=== PATIENT | male | born 1975 | race African-American/Black ===

== ENCOUNTER 2024-09-30 10:46 | Inpatient (IN) | payer OTHER ==
[~2024-09-30] VITALS: Ht 185.4 cm; Wt 126.6 kg
--- NOTE | 2024-09-30 11:05 | ED.PDOC ---
HPI Comments 48 y/o M PHANI, with PMHX of CHF, HTN, and AFIB presents to the ED for CC chest pain. Per EMS, patient is coming for 's walk in clinic where he was being seen for chronic back pain; emergency medical was called due to STEMI being detected on EKG. Patient states, that he has been experiencing back pain, neck pain, and fatigue with intermittent left sided chest pain. Patient relays, that he is currently not experiencing active chest pain however did a couple days ago with associated arm numbness. Per EMS, patients blood pressure was 160/110 in route to ED. Patient denies headache, nausea, chills, weakness, or body-aches. No other symptoms or modifying factors at this time. Chief Complaint: Back Pain Time Seen by MD: 10:50 Reviewed Notes: Nurses Notes, Sensor Operator Notes, Medications, Allergies Allergies: Coded Allergies: Levofloxacin (Verified Allergy, Unknown, 09/30/24) Penicillins (Verified Allergy, Unknown, 09/30/24) Information Source: Patient, Emergency Med Personnel Mode of Arrival: EMS Severity: Moderate Timing: Minutes Duration: Since onset Prehospital treatment: 12 Lead EKG Location: Chest (L) Radiation: Back, Neck Onset: At Rest Cardiac Risk Factors: None PE Risk Factors: None History of: None Modifying Factors: Nothing Associated Signs and Symptoms: SOB, Back Pain Past Medical History PAST MEDICAL HISTORY: AFIB, CHF, HTN Surgical History (Other): pacemaker/difibulator Family History Family History: Family hx of heart jyothi Social History Smoker: Non-Smoker Alcohol: Denies ETOH Use Drugs: Denies Drug Use Lives In: Home Constitutional: reports: fatigue; denies: chills, diaphoresis, fever, malaise, sweats, weakness, others EENTM: denies: blurred vision, double vision, ear bleeding, ear discharge, ear drainage, ear pain, ear ringing, eye pain, eye redness, hearing loss, mouth pain, mouth swelling, nasal discharge, nose bleeding, nose congestion, nose pain, photophobia, tearing, throat pain, throat swelling, voice changes, others Respiratory: denies: cough, hemoptysis, orthopnea, SOB at rest, shortness of breath, SOB with excertion, stridor, wheezing, others Cardiovascular: denies: chest pain, dizzy spells, diaphoresis, Dyspnea on exertion, edema, irregular heart beat, left arm pain, lightheadedness, palpitations, PND, syncope, others Gastrointestinal: denies: abdomen distended, abdominal pain, blood streaked bowels, constipated, diarrhea, dysphagia, difficulty swallowing, hematemesis, melena, nausea, poor appetite, poor fluid intake, rectal bleeding, rectal pain, vomiting, others Genitourinary: denies: burning, dysuria, flank pain, frequency, hematuria, incontinence, penile discharge, penile sore, pain, testicle pain, testicle swelling, urgency, others Neurological: reports: numbness; denies: dizziness, fainting, headache, left sided numbness, left sided weakness, paresthesia, pre-existing deficit, right sided numbness, right sided weakness, seizure, speech problems, tingling, tremors, weakness, others Musculoskeletal: reports: back pain, neck pain; denies: gout, joint pain, joint swelling, muscle pain, muscle stiffness, others Integumetry: denies: bruises, change in color, change in hair/nails, dryness, laceration, lesions, lumps, rash, wounds, others Allergic/Immunocompromised: denies: Difficulty Healing, Frequent Infections, Hives, Itching, others Hematologic/Lymphatic: denies: anemia, blood clots, easy bleeding, easy bruising, swollen glands, others Endocrine: denies: excessive hunger, excessive sweating, excessive thirst, excessive urination, flushing, intolerance to cold, intolerance to heat, unexplained weight gain, unexplained weight loss, others Psychiatric: denies: anxiety, bipolar disorder, depression, hopeless, panic disorder, schizophrenia, sleepless, suicidal, others All Other Systems: Reviewed and Negative Physical Exam General Appearance: Moderate Distress HEENT: Normal ENT Inspection, Pharynx Normal, TMs Normal Neck: Full Range of Motion, Non-Tender, Normal, Normal Inspection Respiratory: Chest Non-Tender, Lungs Clear, No Accessory Muscle Use, No Respiratory Distress, Normal Breath Sounds, Other (The patient has an AICD in place on the left side) Cardiovascular: No Edema, No JVD, No Murmur, No Gallop, Normal Peripheral Pulses, Regular Rate/Rhythm Breast Exam: Deferred Gastrointestinal: No Organomegaly, Non Tender, No Pulsatile Mass, Normal Bowel Sounds, Soft Genitalia: Deferred Pelvic: Deferred Rectal: Deferred Extremities: No calf tenderness, Normal capillary refill, Normal inspection, Normal range of motion, Non-tender, No pedal edema Musculoskeletal : Apperance: Normal Neurologic: Alert, dietary clerk II-XII nml as Tested, No Motor Deficits, Normal Affect, Normal Mood, No Sensory Deficits Cerebellar Function: Normal Reflexes: Normal Skin: Dry, Normal Color, Warm Lymphatic: No Adenopathy EKG EKG : Pulse Rate (adult): 82 Cardiac Rhythm: Paced Block: None ST: Nonsp Was a procedure done? Was a procedure done?: No CP Differential Dx Differential Diagnosis: A-fib Differential Diagnosis: HTN Essential, HTN Accelerated Differential Diagnosis: Angina, Chest Wall Pain, Costochondritis X-Ray, Labs, Meds, VS Vital Signs Date Time Temp Pulse Resp B/P (MAP) Pulse Ox O2 Delivery O2 Flow Rate FiO2 09/30/24 14:47 82 09/30/24 14:34 82 18 135/73 (93) 100 09/30/24 14:33 79 18 135/73 09/30/24 13:28 81 18 94 Room Air 09/30/24 13:28 81 18 126/93 (104) 94 09/30/24 12:25 98.1 83 17 155/109 (124) 97 98.1 09/30/24 10:46 82 09/30/24 10:46 98.1 86 18 170/110 (130) 97 153/110 (124) Lab Test 09/30/24 13:42 09/30/24 12:21 09/30/24 11:57 09/30/24 10:34 Range/Units Troponin I High Sensitivity 128 *H 130 *H 127 *H </=54 ng/L Urine Color Light-yellow Yellow Urine Clarity Clear Clear Urine pH 6.5 5.0-9.0 Urine Specific [place] 1.020 1.001-1.035 Urine Protein Negative Negative Urine Ketones Negative Negative Urine Blood Negative Negative /uL Urine Nitrite Negative Negative Urine Bilirubin Negative Negative Urine Urobilinogen Normal Negative mg/dL Urine Leukocyte Esterase Negative Negative /uL Urine RBC 2 0 - 3 /hpf Urine Microscopic WBC 1 0-3 /HPF Urine Squamous Epithelial Cells None seen <5 /hpf Urine Bacteria None seen None Seen /hpf Urine Glucose Normal Normal mg/dL White Blood Count 6.2 4.4-10.8 10^3/uL Red Blood Count 5.23 4.5-5.90 10^6/uL Hemoglobin 14.6 13.5-17.5 g/dL Hematocrit 44.9 41.0-53.0 % Mean Corpuscular Volume 85.8 80.0-100.0 fL Mean Corpuscular Hemoglobin 28.0 28.0-32.0 pg Mean Corpuscular Hemoglobin Concent 32.6 32.0-36.0 g/dL Red Cell Distribution Width 12.7 11.8-14.3 % Platelet Count 263 140-450 10^3/uL Mean Platelet Volume 7.6 6.9-10.8 fL Neutrophils (%) (Auto) 50.8 37.0-80.0 % Lymphocytes (%) (Auto) 33.7 10.0-50.0 % Monocytes (%) (Auto) 11.7 0.0-12.0 % Eosinophils (%) (Auto) 2.6 0.0-7.0 % Basophils (%) (Auto) 1.2 0.0-2.0 % Neutrophils # (Auto) 3.1 1.6-8.6 10 ^3/uL Lymphocytes # (Auto) 2.1 0.4-5.4 10 ^3/uL Monocytes # (Auto) 0.7 0-1.3 10 ^3/uL Eosinophils # (Auto) 0.2 0-0.8 10 ^3/uL Basophils # (Auto) 0.1 0-0.2 10 ^3/uL Nucleated Red Blood Cells 0.1 % Sodium Level 138 136-145 mmol/L Potassium Level 3.8 3.5-5.1 mmol/L Chloride Level 102 98-107 mmol/L Carbon Dioxide Level 30 20-31 mmol/L Anion Gap 6 5-15 Blood Urea Nitrogen 14 9-23 mg/dL Creatinine 1.17 0.700-1.30 mg/dL Glomerular Filtration Rate Calc 76 >90 mL/min BUN/Creatinine Ratio 12.0 10.0-20.0 Serum Glucose 89 74-106 mg/dL Calcium Level 9.9 8.7-10.4 mg/dL B-Type Natriuretic Peptide 45.99 0-100 pg/mL Current Medications Medications (Trade) Dose Ordered Sig/Crystal Route Start Time Stop Time Status Last Admin Ondansetron HCl (Zofran) 4 mg ONCE ONCE IV 09/30/24 14:30 09/30/24 14:31 DC 09/30/24 14:33 Morphine Sulfate 4 mg ONCE ONCE IV 09/30/24 14:30 09/30/24 14:31 DC 09/30/24 14:33 CXR: FINDINGS: Lines and Tubes: Cardiac pacemaker projects over left chest wall. Lungs: No focal consolidation. Pleura: No effusion. No pneumothorax. Cardiomediastinal contours: Unremarkable Bones: No acute osseous abnormality. IMPRESSION: No acute cardiopulmonary disease. ATED BY: BRIDGET SHINE MD DICTATED DATE/TIME: 09/30/241127 SIGNED BY: BRIDGET SHINE MD SIGNED DATE/TIME: 09/30/241127 CC: The AICD pacemaker was interrogated. It seems that the patient goes in and out of atrial fibrillation. The device has a about a five year lifetime left. At this time it seems to be functioning appropriately IV Hep-Lock was established and the patient was given morphine 4 mg IV push for the pain The patient was given Zofran 4 mg IV push for the nausea The BNP is within normal limits The CBC and chemistry panel are within normal limits The patient was being admitted at this time The troponin level is elevated at 127 and 130 The patient was being admitted Images Reviewed?: Images reviewed and evaluated by me Time of 1ST Reevaluation: 11:20 Reevaluation 1ST: Unchanged Patient Education/Counseling: Diagnosis, Treatment, Prognosis Family Education/Counseling: No Family Present Additional Information - I reviewed the following notes from patient's past medical encounters: NONE - The following tests were ordered, and results were reviewed by me: BMP, CBC, B-TYPE NATRIURETIC, UA, TROPONIN X3, EKG X3, CXR - Additional information was gathered from interviewing the following independent Historian: EMS - I reviewed and agreed with the following test results read by other provider: CXR radiologist - I discussed treatments and results with medical personnel and: PATIENT Departure 1 Departure Time of Disposition: 15:26 Impression: Primary Impression: Acute chest pain Additional Impressions: Acute coronary syndrome Elevated troponin Disposition: ADMITTED INPATIENT Admit to: [facility] Condition: Fair Critical Care Note Critical Care Time?: Yes (45 min-critical care time only) Stability Stability form required: Yes Unstable for transfer: Telemetry monitoring (Telemetry monitoring required), ED Physician Assesment (Clinical assesment) Heart Score Heart Score: Heart Score Response (Comments) Value History N/A 0 EKG N/A 0 Age N/A 0 Risk Factors N/A 0 Troponin N/A 0 Total 0 I personally scribed for ERIC MEDRANO MD ([email or web address]) on 09/30/24 at 11:05. Electronically submitted by Mony Caavzos ([email or web address]). I personally scribed for ERIC MEDRANO MD ([email or web address]) on 09/30/24 at 11:47. Electronically submitted by Mony Cavazos ([email or web address]). ERIC MEDRANO MD Sep 30, 2024 11:05
[2024-09-30 11:15] LABS: Basophils # (auto) 0.1 10 ^3/uL (0-0.2); Basophils % (auto) 1.2 % (0.0-2.0); Eosinophils # (auto) 0.2 10 ^3/uL (0-0.8); Eosinophils % (auto) 2.6 % (0.0-7.0); Hematocrit 44.9 % (41.0-53.0); Hemoglobin 14.6 g/dL (13.5-17.5); Lymphocytes # (auto) 2.1 10 ^3/uL (0.4-5.4); Lymphocytes % (auto) 33.7 % (10.0-50.0); Mean Corpuscular Hgb Conc. 32.6 g/dL (32.0-36.0); Mean Corpuscular Volume 85.8 fL (80.0-100.0); Monocytes # (auto) 0.7 10 ^3/uL (0-1.3); Monocytes % (auto) 11.7 % (0.0-12.0); Neutrophils # (auto) 3.1 10 ^3/uL (1.6-8.6); Neutrophils % (auto) 50.8 % (37.0-80.0); Nucleated Red Blood Cells % 0.1 %; Platelet Count (auto) 263 10^3/uL (140-450); Red Blood Cells 5.23 10^6/uL (4.5-5.90); Red Cell Distribution Width 12.7 % (11.8-14.3); White Blood Cell 6.2 10^3/uL (4.4-10.8)
[2024-09-30 11:28] LABS: Chloride 102 mmol/L (98-107); Potassium 3.8 mmol/L (3.5-5.1); Sodium 138 mmol/L (136-145)
[2024-09-30 11:29] LABS: Anion Gap 6 (5-15); Calcium 9.9 mg/dL (8.7-10.4); Carbon Dioxide 30 mmol/L (20-31)
--- NOTE | 2024-09-30 11:29 | DVH ---
EXAM: XY CHEST PORTABLE Indication: pain Technique: Single frontal view of the chest was obtained Comparison: None FINDINGS: Lines and Tubes: Cardiac pacemaker projects over left chest wall. Lungs: No focal consolidation. Pleura: No effusion. No pneumothorax. Cardiomediastinal contours: Unremarkable Bones: No acute osseous abnormality. IMPRESSION: No acute cardiopulmonary disease.
[2024-09-30 11:34] LABS: Blood Urea Nitrogen 14 mg/dL (9-23); Glucose 89 mg/dL (74-106)
[2024-09-30 13:46] LABS: Urine Bacteria None Seen /hpf (None Seen)
[2024-09-30 14:10] LABS: Urine Blood Negative /uL (Negative); Urine Clarity Clear (Clear); Urine Color Light-Yellow (Yellow); Urine Protein, UAD Negative (Negative); Urine Squamous Epithelial Cell None Seen /hpf (<5); Urine Urobilinogen Normal (Negative); Urine WBC 1 /HPF (0-3); Urine pH 6.5 (5.0-9.0)
--- NOTE | 2024-09-30 14:30 | ECG ---
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
[2024-09-30] MEDS: MORPHINE SULFATE 4 MG/ML SYR/VIAL IV ONE ×2 (14:33→21:45)
[2024-09-30] MEDS: ONDANSETRON HCL 4 MG/2 ML VIAL IV ONE ×2 (14:33→21:45)
[2024-09-30] MEDS ORDERED: SOTA80TA PO (16:04)
[2024-09-30] MEDS ORDERED: SOTA120T25 PO (20:00)
[2024-09-30] MEDS ORDERED: DILT60TA PO (20:01)
[2024-09-30] MEDS ORDERED: RIVA20TA PO (20:02)
[2024-09-30] MEDS ORDERED: FURO1TAB31 PO (20:03)
[2024-09-30] MEDS ORDERED: GABA-1308 PO (20:04)
[2024-09-30] MEDS ORDERED: MORPHINE SULFATE INJ 2 MG/ml SYRG IV PRN (21:45)
[2024-09-30] MEDS ORDERED: NITROGLYCERIN 0.4 MG SL TAB SL PRN (21:45)
[2024-09-30] MEDS: GABAPENTIN 100 MG CAP PO SCH (22:18)
[2024-09-30] MEDS: SOTALOL HCL 80 MG TAB PO SCH (22:21)
[2024-09-30 23:32] VITALS: BP 129/79; PULSE 60; PULSE 61; PULSE 80; RESP 20; TEMP 98.6; O2SAT 95
[2024-10-01] VITALS (10 sets, daily range): BP systolic 92–134; BP diastolic 54–95; PULSE 60–81; RESP 18–20; TEMP 97.5–98.9; O2SAT 94–100
[2024-10-01] MEDS: ASPirin 81 mg TAB PO SCH (00:26)
--- NOTE | 2024-10-01 01:40 | DVHHPRES ---
History of Present Illness Resident Creating Document: ANTHONY LOPEZ Reason for Visit: STEMI? History of Present Illness A 48-year-old male with a past medical history of congestive heart failure (CHF), hypertension (HTN), and atrial fibrillation (AFib) (pacemaker-dependent), who presents to the emergency department with chest pain and back pain. Per EMS, the patient was initially seen at Dr[facility] Sauer walk-in clinic for chronic back pain when emergency services were called due to a STEMI being detected on a 12-lead ECG. En route, his blood pressure was 160/110 mmHg. The patient describes his symptoms as back pain and fatigue, with intermittent left-sided chest pain over the past few days. He denies any current active chest pain but reports that he experienced left arm numbness and chest pain a couple of days ago. Functional class NYHA IV, orthopnea sleeps with 4 pillows paroxysmal nocturnal dyspnea. He denies headache, nausea, chills, weakness, or body aches. Past Medical History: Atrial fibrillation (pacemaker/ICD dependent) Congestive heart failure (CHF), NYHA IV Hypertension PRKAG2 cardiomyopathy Home meds: Jardiance 10 mg sotalol 120 mg b.i.d. Xarelto 20 mg gabapentin 100 mg furosemide 40 mg only if edema diltiazem 120 mg Surgical History: Pacemaker/ICD placement Social History: Non-smoker Denies alcohol or illicit drug use Lives at home Review of Systems Constitutional: No: Fever, Chills, Sweats, Weakness, Malaise, Other Eyes: No: Pain, Vision change, Conjunctivae inflammation, Eyelid inflammation, Other, Redness ENT: No: Ear pain, Ear discharge, Nose pain, Nose discharge, Nose congestion, Mouth pain, Mouth swelling, Throat pain, Throat swelling, Other Respiratory: No: Cough, Dry, Shortness of breath, SOB with excertion, Wheezing, Hemoptysis, Pleuritic Pain, Sputum, Wheezing, Other Cardiovascular: Chest Pain, Orthopnea, Paroxysmal Noc. Dyspnea Gastrointestinal: No: Nausea, Vomiting, Abdominal Pain, Diarrhea, Constipation, Melena, Hematochezia, Other Genitourinary: No Dysuria, No Frequency, No Incontinence, No Hematuria, No Retention, No Other Musculoskeletal: No: other, neck pain, shoulder pain, arm pain, back pain, hand pain, leg pain, foot pain Skin: No: Rash, Lesions, Jaundice, Bruising, Other Neurological: No: Weakness, Numbness, Incoordination, Change in speech, Confusion, Seizures, Other Allergies: Coded Allergies: Levofloxacin (Verified Allergy, Unknown, 09/30/24) Penicillins (Verified Allergy, Unknown, 09/30/24) Medications Current Medications Medications Dose Ordered Sig/Crystal Route Start Time Stop Time Status Last Admin Dose Admin Nitroglycerin 0.4 mg Q5MINP PRN SL 09/30/24 21:45 Morphine Sulfate 2 mg Q30M PRN IV 09/30/24 21:45 Empaglifozin 10 mg DAILY PO 10/01/24 10:00 Sotalol HCl 120 mg BID PO 09/30/24 22:00 09/30/24 22:21 120 MG Rivaroxaban 20 mg QPM PO 10/01/24 18:00 Furosemide 40 mg DAILY PO 10/01/24 10:00 Diltiazem HCl 120 mg DAILY PO 10/01/24 10:00 Gabapentin 100 mg DAILY PO 09/30/24 10:00 09/30/24 22:18 100 MG Aspirin 81 mg DAILY PO 10/01/24 00:30 10/01/24 00:26 81 MG Exam Vital Signs Vital Signs Date Time Temp Pulse Resp B/P (MAP) Pulse Ox O2 Delivery O2 Flow Rate FiO2 09/30/24 23:32 60 20 95 Room Air* 0 21 09/30/24 23:32 98.6 129/79 (96) 98.6 General Appearance: Alert, Oriented X3, Cooperative, No acute distress HEENT: Atraumatic, PERRLA, EOMI, Mucous membr. moist/pink Respiratory: Clear to auscultation, Normal air movement Cardiovascular: Regular rate, Normal S1, Normal S2 Abdominal: Normal bowel sounds, Soft, No tenderness, No hepatospenomegaly Extremities: No clubbing, No cyanosis, No edema, Normal pulses Skin: No rashes, No breakdown, No significant lesion Neuro: Normal gait, Normal speech, Strength at 5/5 X4 ext, Normal tone, Sensation intact Psych/Mental Status: Mental status NL, Mood NL Labs/Xrays Labs Test 09/30/24 13:42 09/30/24 12:21 09/30/24 10:34 Range/Units Troponin I High Sensitivity 128 *H </=54 ng/L Urine Color Light-yellow Yellow Urine Clarity Clear Clear Urine pH 6.5 5.0-9.0 Urine Specific [place] 1.020 1.001-1.035 Urine Protein Negative Negative Urine Ketones Negative Negative Urine Blood Negative Negative /uL Urine Nitrite Negative Negative Urine Bilirubin Negative Negative Urine Urobilinogen Normal Negative mg/dL Urine Leukocyte Esterase Negative Negative /uL Urine RBC 2 0 - 3 /hpf Urine Microscopic WBC 1 0-3 /HPF Urine Squamous Epithelial Cells None seen <5 /hpf Urine Bacteria None seen None Seen /hpf Urine Glucose Normal Normal mg/dL White Blood Count 6.2 4.4-10.8 10^3/uL Red Blood Count 5.23 4.5-5.90 10^6/uL Hemoglobin 14.6 13.5-17.5 g/dL Hematocrit 44.9 41.0-53.0 % Mean Corpuscular Volume 85.8 80.0-100.0 fL Mean Corpuscular Hemoglobin 28.0 28.0-32.0 pg Mean Corpuscular Hemoglobin Concent 32.6 32.0-36.0 g/dL Red Cell Distribution Width 12.7 11.8-14.3 % Platelet Count 263 140-450 10^3/uL Mean Platelet Volume 7.6 6.9-10.8 fL Neutrophils (%) (Auto) 50.8 37.0-80.0 % Lymphocytes (%) (Auto) 33.7 10.0-50.0 % Monocytes (%) (Auto) 11.7 0.0-12.0 % Eosinophils (%) (Auto) 2.6 0.0-7.0 % Basophils (%) (Auto) 1.2 0.0-2.0 % Neutrophils # (Auto) 3.1 1.6-8.6 10 ^3/uL Lymphocytes # (Auto) 2.1 0.4-5.4 10 ^3/uL Monocytes # (Auto) 0.7 0-1.3 10 ^3/uL Eosinophils # (Auto) 0.2 0-0.8 10 ^3/uL Basophils # (Auto) 0.1 0-0.2 10 ^3/uL Nucleated Red Blood Cells 0.1 % Sodium Level 138 136-145 mmol/L Potassium Level 3.8 3.5-5.1 mmol/L Chloride Level 102 98-107 mmol/L Carbon Dioxide Level 30 20-31 mmol/L Anion Gap 6 5-15 Blood Urea Nitrogen 14 9-23 mg/dL Creatinine 1.17 0.700-1.30 mg/dL Glomerular Filtration Rate Calc 76 >90 mL/min BUN/Creatinine Ratio 12.0 10.0-20.0 Serum Glucose 89 74-106 mg/dL Calcium Level 9.9 8.7-10.4 mg/dL B-Type Natriuretic Peptide 45.99 0-100 pg/mL Assessment/Plan Assessment/Plan Diagnostics & Laboratory Findings: Electrocardiogram (ECG): Pacemaker rhythm No ischemic ST-T changes Evidence of biventricular pacing Echocardiogram [place] 2024: Ejection Fraction (EF): 75% Moderate left ventricular hypertrophy Grade II diastolic dysfunction Coronary Angioct SEP 01 2024: Normal coronary arteries (no obstructive CAD) Interrogation: The AICD pacemaker was interrogated. It seems that the patient goes in and out of atrial fibrillation. Laboratory Results: Troponin I (High Sensitivity): 127/30/128 BNP: 45.99 Electrolytes: Within normal limits Assessment & Plan: #ACS ruled out #Chest Pain with Mild Troponin Elevation (STEMI Alert in Clinic, but Normal Angio) #NSTEMI type 2: Likely demand ischemia vs. PRKAG2-related conduction abnormalities. #PRKAG2 Cardiomyopathy with Pacemaker Dependency #Hypertensive heart disease with diastolic disfunction #Hypertensive urgency resolved #Paroxysmal Atrial fibrillation Admit Telemetry Aspirin 81 mg Xarelto 20 mg Continue Diltiazem, Furosemide, Sotalol. Cardiology consult Case discussed with Dr Acosta Time spent on care 23 min Plan discussed with: Patient, Other (rn) My Orders Orders - ANTHONY LOPEZ RESIDENT Procedure Category Date Status Time Admit ADMIT 09/30/24 Transmitted 21:44 Nitroglycerin PHA 09/30/24 In Process Sublingual (Ntrostat 21:45 Morphine Sulfate PHA 09/30/24 In Process Injection 21:45 Oxygen By Nasal RT 09/30/24 Transmitted Cannula 21:44 Stat Ekg For Chest JOSH 09/30/24 In Process Pain 21:44 Notify Of Changes JSOH 09/30/24 In Process From Base 21:44 Fan Installer For JOSH 09/30/24 In Process 24 Hours 21:44 Emergency Dysrhythmia JOSH 09/30/24 In Process Protocol 21:44 Rhythm Strips Once JOSH 09/30/24 In Process Every Shift 21:44 Cardiac DIET 2/14/25 Transmitted Diet-2gna,Lofat,Lochol Breakfast Empagliflozin PHA 10/01/24 In Process (Jardiance) 10:00 Sotalol Hcl ([place]) PHA 09/30/24 In Process 22:00 Rivaroxaban Tablet PHA 10/01/24 In Process (Xarelto Tablet) 18:00 Furosemide Tablet PHA 10/01/24 In Process (Lasix Tablet) 10:00 Echo 2d Mode Cardiac US 09/30/24 Logged DOP 21:44 * Cardiology Consult CONS 09/30/24 Transmitted 21:44 Diltiazem Er Capsule PHA 10/01/24 In Process (Cardizem Er Capsul 10:00 Gabapentin Capsule PHA 09/30/24 In Process (Neurontin Capsule) 10:00 Aspirin Tablet PHA 10/01/24 In Process 00:30 Date of Service: Sep 30, 2024 Billing Provider: GEOFFREY ACOSTA MD Common Visit Codes: 47440-[id number] INP/OBS CARE (HIGH) ANTHONY LOPEZ RESIDENT Oct 01, 2024 01:40 GEOFFREY ACOSTA MD Oct 01, 2024 23:27
[2024-10-01] MEDS: EMPAGLIFLOZIN 10 MG TAB PO SCH (09:35)
[2024-10-01] MEDS: dilTIAZem 120MG ER CAP PO SCH (09:36)
[2024-10-01] MEDS: FUROSEMIDE 40 MG TAB PO SCH (09:37)
[2024-10-01] MEDS ORDERED: GABAPENTIN 100 MG CAP PO ONE (10:00)
--- NOTE | 2024-10-01 10:31 | DVHCONRES ---
Date Seen: Oct 01, 2024 Resident Creating Document: SIENNA SINGER RESIDENT Referring Physician Dr. Walls, resident Reason for Consultation PRKAG2 sx, chest pain, elevated trops History of Present Illness This is a 48-year-old male who comes into the ED with chief complain of chest pain and back pain. He has a past medical history relevant for CHF, hypertension, atrial fibrillation, pacemaker, PRKAG2 cardiomyopathy, sleep apnea. Social history: Nonsmoker, denies alcohol use or illicit drug use. Home meds: Jardiance, sotalol 120 mg b.i.d., Xarelto 20 mg, gabapentin, Lasix 40 mg p.o. q.d., diltiazem 120 mg Patient stated that for the last two weeks he has been experiencing worsening shortness of breath, fatigue, back pain, however on the day that he was admitted to the hospital he went to a walk-in clinic for complain of back pain, an EKG was performed noting possible STEMI, he was sent to the ED. blood pressure was also elevated 160/110. Patient has also been complaining of intermittent left- sided chest tightness, mild, relief with rest, and narcotics. Patient states he ran out of his medications a couple of weeks ago. On arrival, patient had done an EKG, no STEMI was appreciated, troponins were raised, BNP was within normal limits. Blood pressure was elevated at 170 over 110. All other blood work was unremarkable. Chest x-ray was unremarkable. EKG showed: Atrial sensed ventricular paced complexes, regular, QTC prolonged at 558. On my examination, patient states feeling better than on admission, only she is having mild shortness of breath, fatigue, back pain, mild chest tightness. He is currently on room air, vital signs are unremarkable. Patient stated she has a left heart catheterization in 2007 which was unremarkable. Mental Measurements Teacher: [facility]. Edwards from [facility] PCP: Dr. Sahu from [facility] Family History: Diabetes mellitus G8 MOTHER FH: mental illness Allergies: Coded Allergies: Levofloxacin (Verified Allergy, Unknown, 09/30/24) Penicillins (Verified Allergy, Unknown, 09/30/24) Home Meds Reported Medications Gabapentin (Gabapentin) 100 Mg Cap, 100 MG PO TID 09/30/24 Furosemide (Lasix) 40 Mg Tab, 40 MG PO DAILY, TAB 09/30/24 Rivaroxaban (XARELTO) 20 Mg Tab, 1 TAB PO DAILY, #30 TAB 11 Refills 09/30/24 Diltiazem Hcl (Diltiazem Hcl) 60 Mg Tab, 120 MG PO Q8HR for 30 Days, MG 09/30/24 Sotalol Hcl (Sotalol Hcl) 80 Mg Tab, 120 MG PO BID, TAB 09/30/24 Current Medications Current Medications Medications (Trade) Dose Ordered Sig/Crytsal Route PRN Reason Start Time Stop Time Status Last Admin Nitroglycerin (Ntrostat Sublingual) 0.4 mg Q5MINP PRN SL FOR CHEST PAIN 09/30/24 21:45 10/01/24 06:40 DC Morphine Sulfate 2 mg Q30M PRN IV FOR CHEST PAIN 09/30/24 21:45 Empaglifozin (Jardiance) 10 mg DAILY PO 10/01/24 10:00 10/01/24 09:35 Sotalol HCl (Betapace) 120 mg BID PO 09/30/24 22:00 10/01/24 09:36 Rivaroxaban (Xarelto Tablet) 20 mg QPM PO 10/01/24 18:00 Furosemide (Lasix Tablet) 40 mg DAILY PO 10/01/24 10:00 10/01/24 09:37 Diltiazem HCl (Cardizem ER Capsule) 120 mg DAILY PO 10/01/24 10:00 Aspirin 81 mg DAILY PO 10/01/24 00:30 10/01/24 09:35 Review of Systems Constitutional: Fatigue Eyes: Patient denies any visual symptoms. Ears, Nose, and Throat: No difficulties with hearing. No symptoms of rhinitis or sore throat. Cardiovascular: Chest tightness Respiratory: Shortness of breath GI: No nausea, vomiting, diarrhea, constipation, abdominal pain, hematochezia or melena. : No urinary hesitancy or dribbling. No nocturia or urinary frequency. No abnormal urethral discharge. Musculoskeletal: No myalgias, arthralgias or edema. Neurologic: No chronic headaches, no seizures. Patient denies numbness, tingling or weakness. Psychiatric: Patient denies problems with mood disturbance. No problems with anxiety. Endocrine: No excessive urination or excessive thirst. Dermatologic: Patient denies any rashes or skin changes. Vital Signs Vital Signs Date Time Temp Pulse Resp B/P (MAP) Pulse Ox O2 Delivery O2 Flow Rate FiO2 10/01/24 09:37 123/84 10/01/24 09:36 77 10/01/24 08:34 97.5 20 97 97.5 09/30/24 23:32 Room Air* 0 21 Physical Exam General: Awake, alert, comfortable appearing, in no acute distress. HEENT: Head is normocephalic and atraumatic. Pupils are equal, round, and reactive to light. Extraocular muscles are intact. No nasal discharge. No facial trauma. Intraoral exam shows moist mucous membranes with no tonsillar enlargement or exudate. Neck: Supple with no cervical lymphadenopathy No meningismus. No goiter. Heart: Regular rate without murmur, rub, or gallop. Lungs: Scattered crackles bilaterally Abdomen: No external sign of injury. Bowel sounds are present. Abdomen is soft, nontender. No rebound, no guarding, no rigidity. There are no palpable masses. There is no flank pain on exam. Extremities: Strong peripheral pulses. There is no clubbing, no cyanosis, and no edema. Skin: No rash. Neurologic: Cranial nerves II-XII intact without motor, sensory, or cerebellar deficit, no asterixis. Labs/Diagnostic Data Labs Test 10/01/24 09:30 09/30/24 12:21 09/30/24 10:34 Range/Units Urine Color Light-yellow Yellow Urine Clarity Clear Clear Urine pH 6.5 5.0-9.0 Urine Specific [place] 1.020 1.001-1.035 Urine Protein Negative Negative Urine Ketones Negative Negative Urine Blood Negative Negative /uL Urine Nitrite Negative Negative Urine Bilirubin Negative Negative Urine Urobilinogen Normal Negative mg/dL Urine Leukocyte Esterase Negative Negative /uL Urine RBC 2 0 - 3 /hpf Urine Microscopic WBC 1 0-3 /HPF Urine Squamous Epithelial Cells None seen <5 /hpf Urine Bacteria None seen None Seen /hpf Urine Glucose Normal Normal mg/dL White Blood Count 6.2 4.4-10.8 10^3/uL Red Blood Count 5.23 4.5-5.90 10^6/uL Hemoglobin 14.6 13.5-17.5 g/dL Hematocrit 44.9 41.0-53.0 % Mean Corpuscular Volume 85.8 80.0-100.0 fL Mean Corpuscular Hemoglobin 28.0 28.0-32.0 pg Mean Corpuscular Hemoglobin Concent 32.6 32.0-36.0 g/dL Red Cell Distribution Width 12.7 11.8-14.3 % Platelet Count 263 140-450 10^3/uL Mean Platelet Volume 7.6 6.9-10.8 fL Neutrophils (%) (Auto) 50.8 37.0-80.0 % Lymphocytes (%) (Auto) 33.7 10.0-50.0 % Monocytes (%) (Auto) 11.7 0.0-12.0 % Eosinophils (%) (Auto) 2.6 0.0-7.0 % Basophils (%) (Auto) 1.2 0.0-2.0 % Neutrophils # (Auto) 3.1 1.6-8.6 10 ^3/uL Lymphocytes # (Auto) 2.1 0.4-5.4 10 ^3/uL Monocytes # (Auto) 0.7 0-1.3 10 ^3/uL Eosinophils # (Auto) 0.2 0-0.8 10 ^3/uL Basophils # (Auto) 0.1 0-0.2 10 ^3/uL Nucleated Red Blood Cells 0.1 % Sodium Level 138 136-145 mmol/L Potassium Level 3.8 3.5-5.1 mmol/L Chloride Level 102 98-107 mmol/L Carbon Dioxide Level 30 20-31 mmol/L Anion Gap 6 5-15 Blood Urea Nitrogen 14 9-23 mg/dL Creatinine 1.17 0.700-1.30 mg/dL Glomerular Filtration Rate Calc 76 >90 mL/min BUN/Creatinine Ratio 12.0 10.0-20.0 Serum Glucose 89 74-106 mg/dL Calcium Level 9.9 8.7-10.4 mg/dL B-Type Natriuretic Peptide 45.99 0-100 pg/mL Assessment Atypical chest pain, ruled out ACS Hypertensive urgency NSTEMI likely type 2 due to above Paroxysmal Atrial fibrillation, status AICD [employer] PRKAG2 cardiomyopathy Chronic systolic/diastolic CHF Plan/Recommendation Patient presented with atypical chest pain, troponins were elevated likely related to hypertensive urgency, currently blood pressure is stable, troponins are trending down, EKG shows a paced rhythm. Continue sotalol 120 mg p.o. b.i.d. Continue Xarelto 20 mg p.o. q.d. Continue aspirin 81 mg p.o. q.d. Start Lipitor 40 mg p.o. q.d. ASCVD score of 14% Echocardiogram reveals an ejection fraction of 55%, severe LVH Patient has undergone significant cardiac workup recently, we will not be performed in any catheterization, we recommended patient to follow up with his well head pumper in [facility]. Case was discussed with Dr. Crook seen with CV team and agree with plan formulated with resident pt has unsual cardiomyoathy he has very good fu with his cards in [facility] pt had recent coronary cta heart, i dont have report, pt has on phone but its not clear, he tells me its normal however device is MDT, he gets it checked q3 months trop is 2/2 to chf and HTN on admit cont home meds fu with his cards cvcleared for dc home echo showed severe LVH on his previous echo Plan discussed with: Patient SIENNA SINGER RESIDENT Oct 01, 2024 10:31 SHAHBAZ CROOK MD Oct 01, 2024 17:11
[2024-10-01 10:33] LABS: CRP High Sensitivity 0.28 mg/dL (<1.0)
--- NOTE | 2024-10-01 12:37 | DVHSR ---
APPROVED REPORT EXAM: Two-dimensional and M-mode echocardiogram with Doppler and color Doppler. Blood Pressure: 92/54 mmHg INDICATION Chest Pain RISK FACTORS Height: 6'1, Weight: 255 DIMENSIONS LVDd5.5 (3.8-5.7cm)LA (2D)3.3 (1.9-4.0cm)Aortic Root4.2 (2.0-3.7cm) LVDs3.5 (2.5-4.0cm)LA (MM) (1.9-4.0cm)Aortic Cusp Exc1.9 (1.5-2.0cm) EF (%) 65.0 (55-70%)Rt. Atrium (1.9-4.0cm)Asc. Aorta3.7 cm IVSd1.4 (0.7-1.1cm)RV (D) (1.8-2.4cm) PWd1.4 (0.7-1.1cm) Mitral Valve MitralMitral Stenosis E wave0.80m/sMV Mean GR.mmHg A wave0.69m/sMV Peak GR.113mmHg E/A ratio1.22D MVAcm2 DECEL [id number] 1/2 Timems Aortic Valve Aortic ValveAortic Stenosis V11.03m/Ama Mean GR.4mmHg V21.35m/Ama Peak GR.7mmHg LVOT Diameter2.1 (1.8-2.4cm)Doppler AVA2.64cm2 Pulmonic Valve V21.07m/s Other Information Quality : Technically LimitedRhythm : Technically limited study due to pt stated he is sensitive to touch Conclusion lvef 55% by visual estimate severe LVH , severe concentric, small LV cavity atria not swell seen no severe valve abnormalities noted
--- NOTE | 2024-10-01 13:44 | DVHPNRES ---
Progress Note Date Seen: Oct 01, 2024 Resident Creating Document: JUNIOR JJ RESIDENT Medical Necessity Reason Pt with a Central, PICC or Fol: No Subjective Review of Systems Patient is a 48-year-old male with past medical history of PRKAG2 cardiomyopathy, atrial fibrillation, CHF, s/p ICD placement, chronic back pain, asthma, sleep apnea, hypertension who came to the emergency department due to chest, back and neck pain. According to the patient, he ran out of his pain medications including prednisone, lidocaine patch and gabapentin and he subsequently went to his PCP, Dr. Cristiane sidhu on [facility], where he was noted to have EKG changes likely ST elevations after which he was sent to the ED via ambulance. Patient notes that he had cardiac workup including coronary CT on 09/01/2023 which showed nonobstructive coronary artery disease, echo from the same time showed EF 75%, moderate left ventricular hypertrophy and grade 2 diastolic dysfunction. Serial troponins were noted to be 130, 128, 112. Patient notes using 4-5 pillows at night, however, most of them are used around him rather under his head likely for comfort purposes. Patient is able to lie flat without any appreciable or obvious difficulty breathing. Past surgical history: Left ankle surgery, jaw surgery, s/p ICD placement Home medications: Sotalol, Xarelto, Jardiance, prednisolone, gabapentin, furosemide, diltiazem Social & Personal history: Patient lives with family. Denies smoking. Drinks alcohol occasionally. Denies using any drugs. Allergies: Breaks into hives with penicillin, chest pain with Levaquin Patient seen and examined at bedside. Patient is alert and oriented to time, place person and responding to all questions. General: Fatigue Eyes: No Pain, No Vision change, No Conjunctivae inflammation, No Eyelid inflammation, No Other, No Redness ENT: No Ear pain, No Ear discharge, No Nose pain, No Nose discharge, No Nose congestion, No Mouth pain, No Mouth swelling, No Throat pain, No Throat swelling, No Other Cardiovascular: No Chest Pain, Palpitations, No Orthopnea, Dyspnea, No Edema, No Lt Headedness, No Other Respiratory: No Cough, No Dry, Shortness of breath, No SOB with exertion, No Wheezing, No Hemoptysis, No Pleuritic Pain, No Sputum, No Other Gastrointestinal: No Nausea, No Vomiting, No Abdominal Pain, No Diarrhea, No Constipation, No Melena, No Hematochezia, No Other Genitourinary: No Dysuria, Frequency, No Incontinence, No Hematuria, No Retention, No Other Musculoskeletal: No other, No neck pain, No shoulder pain, No arm pain, No back pain, No hand pain, No leg pain, No foot pain Skin: No Rash, No Lesions, No Jaundice, No Bruising, No Other Objective vital signs Vital Sign Date Time Temp Pulse Resp B/P (MAP) Pulse Ox O2 Delivery O2 Flow Rate FiO2 10/01/24 13:00 98.0 80 20 125/82 (96) 95 98.0 09/30/24 23:32 Room Air* 0 21 Total Intake and Output 09/30/24 09/30/24 10/01/24 15:00 23:00 07:00 Intake Total 0 ml Output Total 0 ml Balance 0 ml medications Current Medications Medications Dose Ordered Sig/Crystal Route Start Time Stop Time Status Last Admin Dose Admin Morphine Sulfate 2 mg Q30M PRN IV 09/30/24 21:45 Empaglifozin 10 mg DAILY PO 10/01/24 10:00 10/01/24 09:35 10 MG Sotalol HCl 120 mg BID PO 09/30/24 22:00 10/01/24 09:36 120 MG Rivaroxaban 20 mg QPM PO 10/01/24 18:00 Furosemide 40 mg DAILY PO 10/01/24 10:00 10/01/24 09:37 40 MG Diltiazem HCl 120 mg DAILY PO 10/01/24 10:00 Gabapentin 100 mg DAILY PO 09/30/24 10:00 10/01/24 09:37 100 MG Aspirin 81 mg DAILY PO 10/01/24 00:30 10/01/24 09:35 81 MG Atorvastatin Calcium 40 mg HS PO 10/01/24 22:00 Lidocaine 1 patch DAILY TOP 10/02/24 10:00 UNV Examination General Appearance: Cooperative. Well developed. Well nourished. NAD Head Exam: Normal inspection Neck Exam: Normal inspection. Non-tender. Normal alignment Pulmonary/Respiratory: Chest non-tender. Clear bilateral breath sounds, no crackles, no wheezing. Cardiovascular/Chest: Regular rate and rhythm. No murmurs. No JVD. Peripheral Pulses: 2+ Radial (R). 2+ Radial (L). 2+ Pedal (R). 2+ Pedal (L) Abdominal Exam: Normal bowel sounds. Soft. Mild mid abdominal tenderness to palpation, no visible veins, Nontender. No hepatospenomegaly. No masses Ankle Exam: Negative ankle edema Lower extremities: Negative lower extremity edema Neuro/Mental Status: A&O x4. Coherent. Thoughts/Psych: Normal thought pattern. Appropriate mood and affect. Good judgement and insight Skin Exam: Normal inspection. Normal color. Warm. Dry laboratory and microbiology Laboratory Tests 09/30/24 10:34 Test 09/30/24 10:34 Range/Units Serum Glucose 89 74-106 mg/dL Labs and/or images reviewed: Labs reviewed by me, Image(s) reviewed by me Problem List/Assessment/Plan Problem List/Assessment/Plan Chronic back and neck pain - gabapentin 100 mg p.o. daily - lidocaine 5% patch Chest pain with mild troponin elevation ACS ruled out NSTEMI likely type 2 PRKAg 2 cardiomyopathy with pacemaker/ICD dependency Hypertensive heart disease with diastolic dysfunction Paroxysmal atrial fibrillation Hypercoagulable state secondary to above - CXR: No acute cardiopulmonary disease - diltiazem 120 mg p.o. daily - Jardiance 10 mg p.o. daily - furosemide-40 mg p.o. daily - Sotalol 120 mg p.o. b.i.d. - rivaroxaban 20 mg p.o. q.p.m. Hypertension Presented with hypertensive urgency, now improving - aspirin 81 mg - atorvastatin 40 mg asthma sleep apnea - ipratropium and levalbuterol med nebs - BiPAP/CPAP at night for sleep apnea with home settings PUD prophylaxis: protonix 40mg DVT prophylaxis: Levonox 40mg Goals of care: Full code, discussed for >16 minutes on 02/24/24 Plan discussed with patient Plan discussed with Dr. Esparza Plan discussed with: Patient, Other (RN) My Orders My Orders Orders - JUNIOR JJ RESIDENT Procedure Category Date Status Time Pt Request For Service PT 10/01/24 Logged 13:03 Lidocaine 5% Topical PHA 10/02/24 Logged Patch (Lidoderm 5% 10:00 Lorazepam 2mg/Ml Inj PHA 10/01/24 Logged (Ativan Inj) 13:15 Warm Compresses ORDERS 10/01/24 Transmitted 13:05 Date of Service: Oct 01, 2024 Billing Provider: VALENCIA ESPARZA MD Common Visit Codes: [id number] INP/OBS CARE(HIGH) JUNIOR JJ Oct 01, 2024 13:44 VALENCIA ESPARZA MD Oct 05, 2024 16:06
[2024-10-01] MEDS: LORazepam 2MG/ML-1ML VIAL IV ONE (15:00)
[2024-10-01] MEDS: LIDOCAINE 5% TOPICAL PATCH TOP SCH (16:24)
[2024-10-01] MEDS: RIVAROXABAN 20 MG TAB PO SCH (18:27)
[2024-10-01] MEDS ORDERED: IPRATROPIUM BROM 0.5 MG/2.5ML INH SOL NEB PRN (19:15)
[2024-10-01] MEDS ORDERED: LEVALBUTEROL HCL 1.25 MG/3 ML NEB NEB PRN (19:15)
[2024-10-01] MEDS: POLYETHYLENE GLYCOL 17 GM PWDR PO PRN (19:35)
[2024-10-01] MEDS: diphenhdrAMINE HCL 12.5 MG/5 ML UD PO ONE (20:19)
[2024-10-01 21:03] LABS: Opiate Scree,Urine Neg (NEGATIVE)
[2024-10-01 21:10] LABS: Amphetamine Screen, Urine Neg (NEGATIVE); Barbiturate Scree,Urine Neg (NEGATIVE); Benzodiazephine Screen, Urine Neg (NEGATIVE); Cannabinoid Screen, Urine Neg (NEGATIVE); Cocaine Screen, Urine Neg (NEGATIVE); Phencyclidine Screen, Urine Neg (NEGATIVE)
[2024-10-01] MEDS: ATORVASTATIN 20 MG TAB PO SCH (21:29)
[2024-10-02 01:00] VITALS: BP 106/73; PULSE 60; RESP 20; TEMP 98.1; O2SAT 98
[2024-10-02 02:12] VITALS: PULSE 60; O2SAT 98
[2024-10-02 05:00] VITALS: BP 116/67; PULSE 60; RESP 18; TEMP 97.6; O2SAT 98
[2024-10-02 06:26] LABS: Basophils # (auto) 0 10 ^3/uL (0-0.2); Basophils % (auto) 0.4 % (0.0-2.0); Eosinophils # (auto) 0.2 10 ^3/uL (0-0.8); Hematocrit 43.9 % (41.0-53.0); Hemoglobin 14.3 g/dL (13.5-17.5); Lymphocytes # (auto) 2.2 10 ^3/uL (0.4-5.4); Lymphocytes % (auto) 38.1 % (10.0-50.0); Mean Corpuscular Hgb Conc. 32.4 g/dL (32.0-36.0); Mean Corpuscular Volume 86.4 fL (80.0-100.0); Monocytes # (auto) 0.7 10 ^3/uL (0-1.3); Monocytes % (auto) 11.4 % (0.0-12.0); Neutrophils # (auto) 2.7 10 ^3/uL (1.6-8.6); Neutrophils % (auto) 46.1 % (37.0-80.0); Nucleated Red Blood Cells % 0.2 %; Platelet Count (auto) 228 10^3/uL (140-450); Red Blood Cells 5.09 10^6/uL (4.5-5.90); Red Cell Distribution Width 13.2 % (11.8-14.3); White Blood Cell 5.8 10^3/uL (4.4-10.8)
[2024-10-02 06:45] LABS: Chloride 101 mmol/L (98-107); Potassium 3.8 mmol/L (3.5-5.1); Sodium 139 mmol/L (136-145)
[2024-10-02 06:46] LABS: Anion Gap 7 (5-15); Calcium 9.4 mg/dL (8.7-10.4)
[2024-10-02 06:51] LABS: BUN/Creatinine Ratio 10.7 (10.0-20.0); Blood Urea Nitrogen 13 mg/dL (9-23); Glucose 91 mg/dL (74-106)
[2024-10-02 06:57] LABS: Carbon Dioxide 31 mmol/L (20-31)
[2024-10-02 08:00] VITALS: PULSE 84
[2024-10-02 08:44] VITALS: BP 124/83; PULSE 83; RESP 18; TEMP 98; O2SAT 93
[2024-10-02] MEDS ORDERED: LIDOCAINE 5% TOPICAL PATCH TOP SCH (10:00)
[2024-10-02 13:00] VITALS: BP 127/84; PULSE 80; RESP 18; TEMP 98.6; O2SAT 94
[2024-10-02] MEDS ORDERED: LIDO5DIS21 TOP (13:23)
[2024-10-02] MEDS ORDERED: POLY33505 PO (13:23)
[2024-10-02] MEDS ORDERED: POLY17PO5 PO (13:23)
[2024-10-02] MEDS ORDERED: EMPA1TAB PO (13:23)
--- NOTE | 2024-10-02 15:58 | DVHDSRES ---
Discharge Summary Date of Admission Resident Creating Document: NICHOLAS LEE RESIDENT Sep 30, 2024 at 21:44 Date of Discharge: Oct 02, 2024 Labs/Diagnostic Data: Laboratory Results Test 10/02/24 05:35 10/01/24 09:30 10/01/24 00:00 09/30/24 12:21 White Blood Count 5.8 10^3/uL (4.4-10.8) Red Blood Count 5.09 10^6/uL (4.5-5.90) Hemoglobin 14.3 g/dL (13.5-17.5) Hematocrit 43.9 % (41.0-53.0) Mean Corpuscular Volume 86.4 fL (80.0-100.0) Mean Corpuscular Hemoglobin 28.0 pg (28.0-32.0) Mean Corpuscular Hemoglobin Concent 32.4 g/dL (32.0-36.0) Red Cell Distribution Width 13.2 % (11.8-14.3) Platelet Count 228 10^3/uL (140-450) Mean Platelet Volume 7.7 fL (6.9-10.8) Neutrophils (%) (Auto) 46.1 % (37.0-80.0) Lymphocytes (%) (Auto) 38.1 % (10.0-50.0) Monocytes (%) (Auto) 11.4 % (0.0-12.0) Eosinophils (%) (Auto) 4.0 % (0.0-7.0) Basophils (%) (Auto) 0.4 % (0.0-2.0) Neutrophils # (Auto) 2.7 10 ^3/uL (1.6-8.6) Lymphocytes # (Auto) 2.2 10 ^3/uL (0.4-5.4) Monocytes # (Auto) 0.7 10 ^3/uL (0-1.3) Eosinophils # (Auto) 0.2 10 ^3/uL (0-0.8) Basophils # (Auto) 0 10 ^3/uL (0-0.2) Nucleated Red Blood Cells 0.2 % Sodium Level 139 mmol/L (136-145) Potassium Level 3.8 mmol/L (3.5-5.1) Chloride Level 101 mmol/L (98-107) Carbon Dioxide Level 31 mmol/L (20-31) Anion Gap 7 (5-15) Blood Urea Nitrogen 13 mg/dL (9-23) Creatinine 1.21 mg/dL (0.700-1.30) Glomerular Filtration Rate Calc 73 mL/min (>90) BUN/Creatinine Ratio 10.7 (10.0-20.0) Serum Glucose 91 mg/dL (74-106) Calcium Level 9.4 mg/dL (8.7-10.4) Magnesium Level 2.0 mg/dL (1.6-2.6) Troponin I High Sensitivity 112 ng/L (</=54) C-Reactive Protein High Sensitivity 0.28 mg/dL (<1.0) Triglycerides Level 87 mg/dL (< 150) Cholesterol Level 135 mg/dL (< 200) LDL Cholesterol 91 mg/dL (< 100) HDL Cholesterol 31 mg/dL (40-59) Thyroid Stimulating Hormone (TSH) 0.59 uIU/mL (0.55-4.78) Urine Opiates Screen Neg (NEGATIVE) Urine Fentanyl Screen Neg (NEGATIVE) Urine Barbiturates Screen Neg (NEGATIVE) Urine Phencyclidine Screen Neg (NEGATIVE) Urine Amphetamines Screen Neg (NEGATIVE) Urine Benzodiazepines Screen Neg (NEGATIVE) Urine Cocaine Screen Neg (NEGATIVE) Urine Cannabinoids Screen Neg (NEGATIVE) Urine Color Light-yellow (Yellow) Urine Clarity Clear (Clear) Urine pH 6.5 (5.0-9.0) Urine Specific [place] 1.020 (1.001-1.035) Urine Protein Negative (Negative) Urine Ketones Negative (Negative) Urine Blood Negative /uL (Negative) Urine Nitrite Negative (Negative) Urine Bilirubin Negative (Negative) Urine Urobilinogen Normal mg/dL (Negative) Urine Leukocyte Esterase Negative /uL (Negative) Urine RBC 2 /hpf (0 - 3) Urine Microscopic WBC 1 /HPF (0-3) Urine Squamous Epithelial Cells None seen /hpf (<5) Urine Bacteria None seen /hpf (None Seen) Urine Glucose Normal mg/dL (Normal) Test 09/30/24 10:34 B-Type Natriuretic Peptide 45.99 pg/mL (0-100) Other Laboratory Tests 10/02/24 05:35 Brief Hx & Hospital Course: Jethro Monreal is a 48-year-old male patient who presents to ED via EMS referred from PCP due to abnormal EKG (ST-elevation, which was LBBB secondary to paced rhythm) with complaint of due to chest, back and neck pain. According to the patient, he ran out of his pain medications including prednisone, lidocaine patch and gabapentin and he subsequently went to his PCP, Dr. Cristiane sidhu on [facility], where he was noted to have EKG changes likely ST elevations after which he was sent to the ED via ambulance. Denies any other associated symptom. 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 Patient notes that he had cardiac workup including coronary CT on 09/01/2023 which showed nonobstructive coronary artery disease, echo from the same time showed EF 75%, moderate left ventricular hypertrophy and grade 2 diastolic dysfunction. Past surgical history: Left ankle surgery, jaw surgery, s/p ICD placement Home medications: Sotalol, Xarelto, Jardiance, prednisolone, gabapentin, furosemide, diltiazem Social & Personal history: Patient lives with family. Denies smoking. Drinks alcohol occasionally. Denies using any drugs. Allergies: Breaks into hives with penicillin, chest pain with Levaquin Brief hospital course: Musculoskeletal pain in patient with history of genetic cardiomyopathy (autosomal recessive PRKAG2) associated with NSTEMI type 2. Evaluated by instrument repair supervisor who completed echocardiogram, EKG and evaluated clinical status, ruling out acute coronary syndrome. Echocardiogram completed showed LVEF 55%, severe LVH, valvular structures within normal limits. Optimize pain management, recommend follow up with pain management doctor as outpatient. Patient hemodynamically stable, asymptomatic, in condition to be discharged home. Was granted under under mandible optimal medical therapy, gave advice on healthy lifestyle habits, and follow-up with PCP, instrument repair supervisor and pain management doctor. DIAGNOSIS Musculoskeletal pain Chronic back and neck pain ACS ruled out NSTEMI type 2 PRKAg 2 cardiomyopathy with pacemaker/ICD dependency Hypertensive heart disease with diastolic dysfunction Paroxysmal atrial fibrillation (chads Vasc 2/ has bled 1) - Hypercoagulable state secondary to above Hypertension Presented with hypertensive urgency, now improving [place] sleep apnea Goals of care: Full code, discussed for >16 minutes on 02/24/[address] Milligan, patient and nurses. Physical examination Patient lying in bed, in no acute distress General: Lucid, afebrile, mucosae are moist Cardiovascular: Normal S1 and S2. No murmurs, gallops or rubs Respiratory: Normal ventilation mechanics. Clear lung sounds on auscultation Abdomen: Soft, nontender, no organomegaly, normal bowel sounds MSK/skin: Mobilizes 4 limbs. Skin is dry and warm Neurological: Oriented in 3 spheres. No motor no sensitive deficits. Pupils are isocoric and reactive Operations or Procedures EXAM: XY CHEST PORTABLE Indication: pain Technique: Single frontal view of the chest was obtained Comparison: None FINDINGS: Lines and Tubes: Cardiac pacemaker projects over left chest wall. Lungs: No focal consolidation. Pleura: No effusion. No pneumothorax. Cardiomediastinal contours: Unremarkable Bones: No acute osseous abnormality. IMPRESSION: No acute cardiopulmonary disease. ATED BY: BRIDGET SHINE MD DICTATED DATE/TIME: 09/30/24 4522 EXAM: Two-dimensional and M-mode echocardiogram with Doppler and color Doppler. Blood Pressure: 92/54 mmHg INDICATION Chest Pain RISK FACTORS Height: 6'1, Weight: 255 DIMENSIONS LVDd 5.5 (3.8-5.7cm) LA (2D) 3.3 (1.9-4.0cm) Aortic Root 4.2 (2.0- 3.7cm) LVDs 3.5 (2.5-4.0cm) LA (MM) (1.9-4.0cm) Aortic Cusp Exc 1.9 (1.5- 2.0cm) EF (%) 65.0 (55-70%) Rt. Atrium (1.9-4.0cm) Asc. Aorta 3.7 cm IVSd 1.4 (0.7-1.1cm) RV (D) (1.8-2.4cm) PWd 1.4 (0.7-1.1cm) Mitral Valve Mitral Mitral Stenosis E wave 0.80m/s MV Mean GR. mmHg A wave 0.69m/s MV Peak GR. 113mmHg E/A ratio 1.2 2D MVA cm2 DECEL Time 227ms PRESS 1/2 Time ms Aortic Valve Aortic Valve Aortic Stenosis V1 1.03m/s AO Mean GR. 4mmHg V2 1.35m/s AO Peak GR. 7mmHg LVOT Diameter 2.1 (1.8-2.4cm) Doppler ZORAIDA 2.64cm2 Pulmonic Valve V2 1.07m/s Other Information Quality : Technically Limited Rhythm : Technically limited study due to pt stated he is sensitive to touch Conclusion lvef 55% by visual estimate severe LVH , severe concentric, small LV cavity atria not swell seen no severe valve abnormalities noted SIGNED BY: SHAHBAZ CROOK MD SIGNED DATE/TIME: 10/01/24 1237 Condition at Discharge: Good Final Diagnosis/Problems List Musculoskeletal pain Chronic back and neck pain ACS ruled out NSTEMI type 2 PRKAg 2 cardiomyopathy with pacemaker/ICD dependency Hypertensive heart disease with diastolic dysfunction Paroxysmal atrial fibrillation (chads Vasc 2/ has bled 1) - Hypercoagulable state secondary to above Hypertension Presented with hypertensive urgency, now improving [place] sleep apnea Discharge Disposition: Home SNF Discharge Will this Physician continue t: No Discharge Instruct/Medications Diet: Cardiac 2g Na,low cholest Activity: No Restrictions, As Tolerated Follow Up/Referral: PCP Cardiology Pain management Medications: Per EMR Discharge Statement: "Patient was advised to return to the ER or call 911 if any headaches, dizziness, shortness of breath, chest pain, abdominal pain, bleeding, fevers, or worsening of medical condition. Patient was counseled about treatment plan, medications, possible side effects, patientverbalized understanding. All questions were answered to the best of my ability. This discharge took greater then 30 minutes in planning, reviewing documentation, counseling the patient, and discussing with other team members." ASSESSMENT ASSESSMENT Assessment Ruled out ACS Date of Service: Oct 02, 2024 Billing Provider: DANIEL MILLIGAN MD Common Visit Codes: 41706-MIV/OBS DISCH DAY >30min NICHOLAS LEE Oct 02, 2024 15:58 DANIEL MILLIGAN MD Oct 03, 2024 22:15
== END 2024-10-02 15:23 | disposition home or self-care (01) | DRG 199 ==
LOC: ER 10:46 → EDBD 10:46 → OVERFLOW 21:44 → TELE-WESTW 23:21
PROVIDERS: ADMIT Student in an Organized Health Care Education/Training Program; ATTEND Student in an Organized Health Care Education/Training Program
PROC: 5A09357 Assistance with Respiratory Ventilation, Less than 24 Consecutive Hours, Continuous Positive Airway Pressure (ICD-10-PCS; principal; 2024-10-01)
PROC: 5A09357 Assistance with Respiratory Ventilation, Less than 24 Consecutive Hours, Continuous Positive Airway Pressure (ICD-10-PCS; 2024-10-02)
DX: I16.0 Hypertensive urgency (principal); I21.A1 Myocardial infarction type 2; I50.33 Acute on chronic diastolic (congestive) heart failure; D68.59 Other primary thrombophilia; I42.8 Other cardiomyopathies; I11.0 Hypertensive heart disease with heart failure; I48.0 Paroxysmal atrial fibrillation; G89.29 Other chronic pain; G47.30 Sleep apnea, unspecified; J45.909 Unspecified asthma, uncomplicated; Z88.0 Allergy status to penicillin; Z79.899 Other long term (current) drug therapy
CPT/HCPCS: 36415; 71045; 80048; 80061; 80307; 81001; 83735; 83880; 84443; 84484; 85025; 86141; 93005; 93306; 94660; 96374; 96375; 96376; 97163; 99291; G0378; J2405